=== PATIENT | female | born 1990 | race African-American/Black ===

== ENCOUNTER 2022-11-09 11:48 | Emergency (ER) | payer MEDICARE, MEDICAID, SELFPAY ==
[2022-11-09 11:58] VITALS: BP 127/86; PULSE 83; RESP 18; TEMP 37.1; O2SAT 98
--- NOTE | 2022-11-09 12:00 | RT.EKG_ITS ---
APPROVED REPORT Exam: Resting ECG Reason for Exam: resp Patient Location: E HR:84 bpm ECG Measurements Heart Rate 84 AXIS NM 158 P 57 QRSd 103 QRS 46 QT 387 T 20 QTc 459 Conclusion Sinus rhythm...normal P axis, V-rate 60- 99. Sinus. Normal axis. No STEMI. I have reviewed and interpreted ECG and agree with software generated interpretation.
[2022-11-09 13:25] LABS: Abs Immature Grans 0.01 10^3/uL (0.0-0.06); Absolute Basophil Count 0.05 10^3/uL (0.0-0.2); Absolute Eosinophil Count 0.56 10^3/uL (0.0-0.7); Absolute Lymphocyte Count 2.61 10^3/uL (1.2-3.4); Absolute Monocyte Count 0.47 10^3/uL (0.1-0.8); Absolute Neutrophil Count 3.32 10^3/uL (1.2-6.7); Basophils % 0.7; HCT 39.6 % (36.0-46.0); HGB 12.9 g/dL (11.2-15.7); Immature Grans % 0.1; Lymphocytes % 37.2; MCH 28.7 pg (27.0-33.0); MCHC 32.6 % (32.0-36.0); MCV 88 fL (80-95); MPV 9.3 fL (8.0-11.0); Monocytes % 6.7; Neutrophils % 47.3; Platelet Count 411 10^3/uL (130-400); RDW 13.2 % (11.7-14.6); RDW-SD 42.7 fL; WBC 7.02 10^3/uL (4.4-10.8)
[2022-11-09 13:47] LABS: ALT 19 U/L (14-59); AST 15 U/L (15-37); Albumin 3.8 g/dL (3.4-5.0); Alkaline Phosphatase 71 U/L (46-116); BUN 14 mg/dL (7-18); Bilirubin, Total 0.2 mg/dL (0.2-1.0); CREATININE 0.8 mg/dL (0.55-1.02); Calcium 9.4 mg/dL (8.5-10.1); Chloride 102 mmol/L (98-107); Estimated GFR 99.09 (mL/min/1.73m2); Glucose 117 mg/dL (74-106); Lipase 49 U/L (16-77); Potassium 4.3 mmol/L (3.5-5.1); Sodium 137 mmol/L (136-145); Total Protein 8.4 g/dL (6.4-8.2)
[2022-11-09 13:48] LABS: Troponin I < 50 ng/L (<or=60)
[2022-11-09 13:53] LABS: D-Dimer 687 ng/mlFEU (<500)
--- NOTE | 2022-11-09 14:30 | DI.CT_ITS ---
Exam(s) CT CHEST PE CTA EXAM: CT CHEST PE CTA CLINICAL HISTORY: chest pain and shortness of breath. TECHNIQUE: Imaging Protocol: Axial CT angiography was performed with multi-slice acquisition and mu lti-planar and/or 3D reconstructions. CONTRAST MATERIAL: Intravenous: Omnipaque 350 contrast volume:100 mL COMPARISON: No exams were available for comparison FINDINGS: The examination is limited due to patient motion artifact. Tracheobronchial tree: Patent where visualized. Pulmonary parenchyma: No consolidation or dominant measurable mass. No architectural distortion. Pulmonary Arteries: No evidence of filling defect to suggest pulmonary emboli. Mediastinum and Cynthia: No dominant adenopathy or fluid collection. The esophagus is unremarkable. Visualized thyroid gland: Unremarkable. Pleura: No effusion or pneumothorax. Heart: The heart is not dilated. No coronary artery calcifications are seen. No pericardial effusion. Aorta: Thoracic aorta non-dilated. No evidence of dissection. Upper abdomen: Unremarkable. Soft tissues: Unremarkable. Bones: Within normal limits for the patient's age. IMPRESSION: No evidence of pulmonary embolism, thoracic aortic dissection or aneurysm. RADIATION DOSE DELIVERED: 503.2mGy.cm Total DLP DATA REPOSITORY: All CT scans at this facility are submitted to the National Radiology Data Registry (NRDR) Dose Index Registry (DIR) with the [employer] ([employer]). RADIATION OPTIMIZATION: All CT scans at this facility use at least one of these dose optimization te chniques: automated exposure control; mA and/or kV adjustment per patient size (includes targeted exa ms where dose is matched to clinical indication); or iterative reconstruction.
--- NOTE | 2022-11-09 15:50 | W.ED.GENAD ---
Discharge Plan Disposition Patient Disposition: Home Condition: Good Discharge Details Clinical Impression: Chest pain Primary Care Provider: None,None ED Provider: Elkin Ding Meds and New Rx's Prescriptions: Continued metformin 500 mg Tablet 500 mg PO DAILY clonidine HCl 0.2 mg Tablet 0.2 mg PO DAILY propranolol 20 mg Tablet 20 mg PO DAILY fluoxetine 20 mg Capsule 30 mg PO DAILY methylphenidate HCl 50 mg Capsule, Er Biphasic 30-70 50 mg PO QAM Discharge Instructions Instructions: Chest Pain (ED) Additional Instructions: You were seen in the ED for chest pain with reassuring work-up including normal EKG, laboratory studies, CT scan without evidence of pulmonary embolus or other acute pathology. Please take ibuprofen or acetaminophen as needed for pain. Contact your primary care on Friday for follow-up this week. Return to ED for new or worsening pain, increased shortness of breath, fever, other concerns. Discharge Data Discharge Date/Time-TO BE ENTERED AT DEPARTURE: 11/09/22 17:29 Medical Decision Making <MAXINE Flanagan - Last Filed: 11/10/22 13:00> This 28-year-old 2-year-old female presents with report of chest pain for the past 4 days Because of her comorbidities I did order a diagnostic labs including D-dimer and troponin with EKG, EKG does not show evidence of acute abnormality D-dimer was elevated at 658, will order CTA of patient's chest Initial troponin negative, pain has been present for 4 days, no indication for repeat troponin at this time No acute distress Vital stable Heart score is a 2 secondary to BMI, hypertension, and diabetes history If CT is negative, will discharge home in stable condition with stable vitals and will encouraged to take ibuprofen and Tylenol as needed, <Elkin Ding MD - Last Filed: 11/09/22 17:07> This 28-year-old 2-year-old female presents with report of chest pain for the past 4 days Because of her comorbidities I did order a diagnostic labs including D-dimer and troponin with EKG, EKG does not show evidence of acute abnormality D-dimer was elevated at 658, will order CTA of patient's chest Initial troponin negative, pain has been present for 4 days, no indication for repeat troponin at this time No acute distress Vital stable Heart score is a 2 secondary to BMI, hypertension, and diabetes history If CT is negative, will discharge home in stable condition with stable vitals and will encouraged to take ibuprofen and Tylenol as needed, Patient signed out to me pending CTA chest. CTA chest is negative for PE, aortic pathology, pneumothorax, pneumonia. Patient to be discharged home to follow-up with primary care this coming week. Return precautions provided. HPI <MAXINE Flanagan - Last Filed: 11/10/22 13:00> General Date/Time Provider Initiated Documentation: 11/09/22 13:09. HPI Narrative: This 32-year-old female with history of hypertension, diabetes presents with report of cough and cold symptoms with negative COVID tests for the past 4 days. She states she has been coughing after a trip, she flew to [place] and [place] approximately a week ago. She was concerned because 4 days ago she started with some chest pain on the left side, radiating up to her jaw and down her left arm. She denies tobacco abuse or history of coronary artery disease. She thinks there may be coronary artery disease history in her family but is unsure. Denies any calf pain or swelling, denies history of coagulopathy. Denies any current shortness of breath. Denies any significant chest pain but does have mild pain in her chest at this time. Denies any chance of . Denies known exacerbating or relieving factors. Related Data Home Medications Medication Instructions Recorded Confirmed clonidine HCl 0.2 mg tablet 0.2 mg PO DAILY 11/09/22 11/09/22 fluoxetine 20 mg capsule 30 mg PO DAILY 11/09/22 11/09/22 metformin 500 mg tablet 500 mg PO DAILY 11/09/22 11/09/22 methylphenidate HCl 50 mg biphasic 50 mg PO QAM 11/09/22 11/09/22 30-70 capsule,extended release propranolol 20 mg tablet 20 mg PO DAILY 11/09/22 11/09/22 Allergies Allergy/AdvReac Type Severity Reaction Status Date / Time Penicillins Allergy Unverified 11/09/22 12:00 General Stated Complaint: RespSymp CHELY: 3 PFSH <MAXINE Flanagan - Last Filed: 11/10/22 13:00> All Active Problems (Updated 11/09/22 @ 17:07 by Elkin Ding MD) Chest pain (Acute) Social History Smoking/Tobacco Use Status: Never Smoking risk assessment performed?: Yes Alcohol Intake: current Alcohol Intake frequency: holidays/special occasions only Substance use type: does not use Exam <MAXINE Flanagan - Last Filed: 11/10/22 13:00> Narrative Exam Narrative: Calm, cooperative, pupils equal round reactive to light and accommodation, no neck tenderness, mild chest wall tenderness, no crepitus, lungs clear to auscultation, cardiac rate rhythm regular, distal pulses intact, no abdominal tenderness to palpation, alert and oriented, no calf swelling or tenderness, neurovascularly intact Course <MAXINE Flanagan - Last Filed: 11/10/22 13:00> Vital Signs Vital signs: Vital Signs Temperature 37.1 C 11/09/22 11:58 Pulse 83 11/09/22 11:58 Respiratory Rate 18 11/09/22 11:58 Blood Pressure 127/86 11/09/22 11:58 Pulse Oximetry 98 11/09/22 11:58 Temperature 37.1 C 11/09/22 11:58 Temperature Source Oral 11/09/22 11:58 Pulse 83 11/09/22 11:58 Respiratory Rate 18 11/09/22 11:58 Respiratory Effort Normal, Non-Labored 11/09/22 11:59 Blood Pressure 127/86 11/09/22 11:58 Pulse Oximetry 98 11/09/22 11:58 Oxygen Delivery Method Room Air 11/09/22 11:58 Oxygen Flow Rate 0 11/09/22 11:58 Lab/Test Results Lab/Test Results: Laboratory Tests Range/Units 11/09/22 11/09/22 11/09/22 12:30 12:30 12:30 WBC (4.4-10.8) 10^3/uL 7.02 RBC (3.93-5.22) 10^6/uL 4.50 Hgb (11.2-15.7) g/dL 12.9 Hct (36.0-46.0) % 39.6 MCV (80-95) fL 88 MCH (27.0-33.0) pg 28.7 MCHC (32.0-36.0) % 32.6 RDW (11.7-14.6) % 13.2 Plt Count (130-400) 10^3/uL 411 H MPV (8.0-11.0) fL 9.3 Immature Gran % 0.1 Neutrophils % 47.3 Lymphocytes % 37.2 Monocytes % 6.7 Eosinophils % 8.0 Basophils % 0.7 Nucleated RBC % (0.0-0.3) % 0.0 Absolute Neutrophils (1.2-6.7) 10^3/uL 3.32 Absolute Lymphocytes (1.2-3.4) 10^3/uL 2.61 Absolute Monocytes (0.1-0.8) 10^3/uL 0.47 Absolute Eosinophils (0.0-0.7) 10^3/uL 0.56 Absolute Basophils (0.0-0.2) 10^3/uL 0.05 D-Dimer (<500) ng/mlFEU 687 H Sodium (136-145) mmol/L 137 Potassium (3.5-5.1) mmol/L 4.3 Chloride (98-107) mmol/L 102 Carbon Dioxide (21.0-32.0) mmol/L 26.0 Anion Gap (3-11) mmol/L 9.0 BUN (7-18) mg/dL 14 Creatinine (0.55-1.02) mg/dL 0.8 Est GFR (CKD-EPI 2020) (mL/min/1.73m2) 99.09 Glucose (74-106) mg/dL 117 H Calcium (8.5-10.1) mg/dL 9.4 Total Bilirubin (0.2-1.0) mg/dL 0.2 AST (15-37) U/L 15 ALT (14-59) U/L 19 Alkaline Phosphatase (46-116) U/L 71 Troponin I (<or=60) ng/L < 50 Total Protein (6.4-8.2) g/dL 8.4 H Albumin (3.4-5.0) g/dL 3.8 Lipase (16-77) U/L 49 POC- Test(urine) Negative Sign Out <MAXINE Flanagan - Last Filed: 11/10/22 13:00> Sign Out Data: Sign Out Comment: pending ct pe Last updated by Dina Bonner PA at 11/09/22 15:55
[2022-11-09] MEDS: Normal Saline - Diluent 50 ML VIAL IJ (15:52)
[2022-11-09] MEDS: Omnipaque 350 MG/ML 100 ML BTL IJ (15:52)
[2022-11-09] MEDS: Normal Saline Flush 10 ML SYR IVP (15:52)
--- NOTE | 2022-11-09 17:02 | DI.VRAD_ITS ---
PROCEDURE INFORMATION: Exam: CTA Chest With Contrast Exam date and time: 11/09/2022 3:52 PM Age: 32 years old Clinical indication: Other: Chest pain, shortness of breath TECHNIQUE: Imaging protocol: Computed tomographic angiography of the chest with contrast. 3D rendering (Not supervised by radiologist): MIP and/or 3D reconstructed images were created by the technologist. Radiation optimization: All CT scans at this facility use at least one of these dose optimization techniques: automated exposure control; mA and/or kV adjustment per patient size (includes targeted exams where dose is matched to clinical indication); or iterative reconstruction. Contrast material: OMNIPAQUE 350; Contrast volume: 100 ml; Contrast route: INTRAVENOUS (IV); COMPARISON: No relevant prior studies available. FINDINGS: Pulmonary arteries: No filling defects within the pulmonary arteries are identified to suggest pulmonary embolism. Aorta: Unremarkable. No aortic aneurysm. No aortic dissection. Lungs: Unremarkable. No consolidation. No masses. Pleural spaces: There are no pleural effusions present. There is no evidence of pneumothorax. Heart: Heart size is mildly enlarged. There is no pericardial effusion. There is no coronary artery calcification. Lymph nodes: There is no evidence of lymphadenopathy. Bones/joints: Unremarkable. No acute fracture. Soft tissues: Unremarkable. IMPRESSION: 1. No pulmonary embolism identified. 2. Mild cardiomegaly. 3. Clear lungs. Dictated and Authenticated by: Andrew Ferreira MD. Ordering:CODY Arroyo MD
== END 2022-11-09 17:29 | disposition home or self-care (01) ==
PROVIDERS: Physician Assistant; Emergency Provider Emergency Medicine
DX: R07.9 Chest pain, unspecified (principal); R06.02 Shortness of breath; E11.9 Type 2 diabetes mellitus without complications; I10 Essential (primary) hypertension
CPT/HCPCS: 71275; 80053; 81025; 83690; 93005; 99285; 84484; 85025; 85379; 93010; 99284; J3490